=== PATIENT | female | born 1995 | race African-American/Black ===

== ENCOUNTER 2018-11-06 15:34 | Day surgery (SDC) | payer MEDICAID ==
[2018-11-06 16:17] VITALS: BMI 30.9
--- NOTE | 2018-11-06 16:52 | PDOC.LDHP ---
Labor and Delivery H&P Chief complaint: other (fall) HPI: 23 y/o at 37w1d presents after falling on the stairs and hitting her abdomen. Denies VB, LOF, ctx, or decreased FM. Has had care in [place] until now and is trying to establish care with [facility]. ROS neg for HEENT, cv, pulm, gi, gu, neuro, psych, skin, musculoskeletal or constitutional symptoms other than mentioned above. Dating criteria: last menstrual period, first trimester ultrasound OB History Details: 2 prior term SVDs Current complications: none Past Medical History: None Current medications: pre-zander vitamins, other (antacid) Previous surgical history: none Allergies/Adverse Reactions: Allergies Allergy/AdvReac Type Severity Reaction Status Date / Time No Known Allergies Allergy Verified 11/06/18 16:19 Social history: none - Physical Exam Vital signs reviewed and normal: yes General: NAD, resting Lungs: nonlabored breathing Abdomen: gravid Extremeties: no edema FHT: category 1 (140s, mod variability, + accels, no decels) [place] contractions every: occasional - Vaginal Exam cm dilated: 3 (unchanged) Effacement: 50% Station: -3 - OB Labs Blood type: O RH: positive Antibody Screen: negative HIV: negative RPR: negative HEPSAg: negative GBS: positive - Assessment 23 y/o at 37w1d with no e/o abruption or labor. KB negative. status reassuring with reactive NST, monitoring over 4 hours. Bedside HEATHER performed = 6.2cm. - Plan -: D/c home with precautions. Advised to establish care PATRICIO. [facility] talked to patient and getting her set up with their clinic vs [facility]NC.
[2018-11-06 17:53] LABS: #Basophils 0.1 thou/uL (0.0-0.2); #Eosinphils 0.1 thou/uL (0.0-0.7); #Lymphocytes 1.9 thou/uL (1.20-3.40); #Neutrophils 4.8 thou/uL (1.40-6.50); %Basophils 1.1 % (0.0-1.0); %Eosinophils 1.1 % (0.0-10.0); %Lymphocytes 24.1 % (21.0-51.0); %Monocytes 12.1 % (0.0-10.0); %Neutrophils 61.6 % (42.0-75.0); Hemoglobin 10.4 g/dL (12.0-16.0); Mean Corpuscular HGB CONC 32.6 g/dL (32.0-36.0); Mean Corpuscular Hemoglobin 26.1 pg (27.0-31.0); Mean Platelet Volume 9.4 fL (7.4-10.4); Platelet Count 224 thou/uL (130-400); RBC Distribution Width 13.3 % (11.5-14.5); White Blood Cell (WBC) Count 7.8 thou/uL (4.8-10.8)
[2018-11-06 18:34] LABS: Syphilis Antibody Nonreactive (Nonreactive); Syphilis Antibody Index 0.05 S/CO (<1.00 Non-Reactive)
[2018-11-06 18:35] LABS: HIV (1/2) Antibody/Antigen Non-Reactive (NonReactive); HIV 1/2 INDEX 0.09 S/CO (<1.00); Hep B Surf Ag Non-Reactive S/CO (NonReactive)
== END 2018-11-06 20:20 | disposition home or self-care (01) ==
LOC: L&D/OP 15:34
PROVIDERS: ATTEND Obstetrics & Gynecology
DX: Z04.3 Encounter for examination and observation following other accident (principal); Z3A.37 37 weeks gestation of pregnancy
CPT/HCPCS: 36415; 76815; 85025; 85460; 86762; 86780; 86850; 86900; 86901; 87340; 87389; 99283

== ENCOUNTER 2018-11-19 17:30 | Inpatient (IN) | payer MEDICAID ==
[2018-11-19] MEDS ORDERED: hydrALAZINE 20 MG/ML VIAL SLOW IVP PRN (17:52)
[2018-11-19] MEDS ORDERED: Ondansetron PF 4 MG/2 ML Vial IVP PRN (17:52)
[2018-11-19] MEDS ORDERED: Acetaminophen 500 MG TAB PO PRN (17:52)
[2018-11-19] MEDS ORDERED: Promethazine HCl 25 MG/ML VIAL IM PRN (17:52)
[2018-11-19] MEDS ORDERED: NS / Oxytocin 40 units/1000ml 1,000 ML IV PRN (17:53)
[2018-11-19] MEDS ORDERED: Lidocaine 1% (PF) 30 ML VIAL SC PRN ×2 (17:53→18:10)
[2018-11-19] MEDS ORDERED: Penicillin G Potassium 5 MILL.UNITS in Sodium Chloride 0.9% 100 ML IVPB SCH (18:00)
[2018-11-19] MEDS ORDERED: Lactated Ringer's 1,000 ML IV SCH (18:00)
--- NOTE | 2018-11-19 18:19 | PDOC.LDHP ---
Labor and Delivery H&P Chief complaint: contractions HPI: 23 yo @ 39.0 wks by LMP c/w 1T US presents by EMS with contractions every 2 minutes. Contractions began earlier this afternoon and were 10 minutes apart. GBS+, O+, HIV neg, RPR non-reactive, HepsAG negative, antibody negative. Denies vaginal bleeding, loss of fluid, edema. Denies hx of HTN or DM. UTI during , treated. APRYL 11/26/2018 This patient was receiving care in [place] before re-establishing care at 38 weeks at [facility]. Current gestational age (weeks): 39 Due date: 11/26/18 Dating criteria: last menstrual period, first trimester ultrasound Grav: 4 Para: 2 OB History Details: 1: Delivered 6lb 12 oz male born on 01/31/2012 at 37 wks via No or delivery complications 2: Delivered 7lb 3 oz female at 38 wks via No or delivery complications Current complications: other (anemia of ) Abnormal US findings: No Past Medical History: unremarkable Current medications: pre-zander vitamins, iron Previous surgical history: none Allergies/Adverse Reactions: Allergies Allergy/AdvReac Type Severity Reaction Status Date / Time No Known Allergies Allergy Verified 11/19/18 18:12 Social history: none - Physical Exam Vital signs reviewed and normal: yes General: breathing through contractions Heart: RRR Lungs: CTAB Abdomen: gravid Extremeties: no edema FHT: category 1, variability present - Vaginal Exam cm dilated: 6 Effacement: 90% Station: 0 - OB Labs Blood type: O RH: positive Antibody Screen: negative HIV: negative RPR: negative HEPSAg: negative 1 hour GCT: negative GBS: positive - Assessment L&D Assessment: term patient in labor - Plan Plan: admit to L&D, GBS antibiotic prophylaxis, anesthesia consult for pain management (epidural requested) -: Term /0 @ 6:15pm 11/19/18, recheck at 8pm category 1 strip Blood type O+, antibody neg HIV, RPR, HebsAG neg gtt normal epidural 1L LR hanging TAMP PCP Julia Spence will be called for delivery GBS+ penicillin started at 6:40pm 11/19/18 Anemia of 10/17/18 H/H 10.5/32.3 11/19/18 H/H 11.2/35.1 Patient has been taking iron Addendum - Attending - Attending Attestation Date/Time: 11/20/18 1042 I personally evaluated the patient and discussed the management with Dr. Robertson. I agree with the History, Examination, Assessment and Plan documented above with any addition or exceptions noted below. Late entry. , term, in active labor, GBS+. Late xfer of care. Admit, antibiotics.
[2018-11-19] MEDS ORDERED: Fentanyl 4 mcg/Bup 0.1% Cadd 100 ML ONE (18:22)
[2018-11-19 18:25] VITALS: BMI 31.0
[2018-11-19 18:26] LABS: Hemoglobin 11.2 g/dL (12.0-16.0); Mean Corpuscular HGB CONC 31.8 g/dL (32.0-36.0); Mean Corpuscular Volume 78.7 fL (78.0-98.0); Mean Platelet Volume 9.9 fL (7.4-10.4); Platelet Count 246 thou/uL (130-400); RBC Distribution Width 14.3 % (11.5-14.5); Red Blood Cell (RBC) Count 4.46 mill/uL (4.20-5.40); White Blood Cell (WBC) Count 8.5 thou/uL (4.8-10.8)
[2018-11-19] MEDS ORDERED: Lactated Ringer's 500 ML IV SCH (19:00)
[2018-11-19 19:01] LABS: Syphilis Antibody Nonreactive (Nonreactive); Syphilis Antibody Index 0.06 S/CO (<1.00 Non-Reactive)
[2018-11-19 19:02] LABS: Hep B Surf Ag Non-Reactive S/CO (NonReactive)
--- NOTE | 2018-11-19 19:36 | PDOC.EVN ---
Event Note - Event Note Event Note: last check at 1800, /0 FHT: accels present, baseline 150, good variability, variable decels present, cxns q3-4 plan - re-check at 2000 - 500ml bolus, turn to left side - Cat II strip will monitor Addendum - Attending - Attending Attestation Date/Time: 11/19/182123 I personally evaluated the patient and discussed the management with Dr. Queen. I agree with the History, Examination, Assessment and Plan documented above with any addition or exceptions noted below. At my exam cat 1, +accels, mod [place], no decels. Continue current plan and AROM at next check.
--- NOTE | 2018-11-19 20:55 | PDOC.EVN ---
Event Note - Event Note Event Note: last check at 2049, FHT: accels present with early decels, baseline 120, good variability followed by period of minimal variability, likely sleep cycle, cxns q2-3 octaviano - Julia Spence notified - re-check at 2149 - Cat II strip, will monitor
--- NOTE | 2018-11-19 21:43 | PDOC.EVN ---
Event Note - Event Note Event Note: complete +1 minimal varibilaity, no decels, no accels has had good period of accels and variability Cat II strip Will prepare for delivery
[2018-11-19] MEDS ORDERED: Penicillin G 2.5 MILL.units 2.5 MILL.UNITS in Premix Bag 1 BAG IVPB SCH (22:00)
--- NOTE | 2018-11-19 22:13 | PDOC.OPDEL ---
Addendum entered and electronically signed by Kathy Robertson MD 11/19/18 22:43: Vigorous female delivered over an intact perineum in the OP position. Original Note: OB Operative/Delivery Note Delivery Dr/Surgeon: Jordy Robertson Willliamson Pre-Delivery Diagnosis: active labor Procedure/Post Delivery Dx: spontaneous vaginal delivery Weeks gestation: 39 Anesthesia: epidural - Findings A Sex: female - 1 min: 9 - 5 min: 9 - Additional Findings/Plan Placenta delivered: spontaneous Repaired Obstetrical Laceration: none Compilations/Other Findings: Delivery Note: This is 23yo F G4 now P3 0 1 3 @ 39wks who delivered a viable F infant at 2159 on 11/19/18. Following an antepartum course complicated by GBS+ with inadequate prophylaxis, a vigorous female was delivered over an intact perineum in the OA position. Anterior Shoulder and then remainder of the body delivered. No nuchal cord. The head was held down and mouth and nares were bulb suctioned. Cord clamped after delayed cord clamping and cut and cord blood collected. Placenta delivered intact in the [place] presentation with a 3 vessel cord noted. Fundal massage was performed and the fundus was firm. The cervix and vagina were inspected and found to be free of lacerations. Infant went to nursery in good condition for routine care. Apgars were 9/9 at 1 & 5 minutes, respectively. QBL 60ml. Patient tolerated delivery well and went to after routine recovery/care. Post delivery plan: routine recovery Addendum - Attending - Attending Attestation Date/Time: 11/19/18 2331 I was present for the entire delivery. AG 01/14, EBL 150 cc, no tears, GBS ppx of only ~ 3 hours.
[2018-11-19] MEDS: NS / Oxytocin 40 units/1000ml 1,000 ML IV PRN ×2 (22:26→23:57)
[2018-11-20] MEDS ORDERED: Benzocaine-Menthol 82.5 ML CAN TOP PRN (00:37)
[2018-11-20] MEDS ORDERED: NS / Oxytocin 40 units/1000ml 1,000 ML IV SCH (00:37)
[2018-11-20] MEDS ORDERED: hydrALAZINE 20 MG/ML VIAL SLOW IVP PRN (00:37)
[2018-11-20] MEDS ORDERED: Milk Of Magnesia 30 ML UDCUP PO PRN (00:37)
[2018-11-20] MEDS ORDERED: Bisacodyl 10 MG SUPP PR PRN (00:37)
[2018-11-20] MEDS ORDERED: Lanolin Ointment 7 GM TUBE TOP PRN (00:37)
[2018-11-20] MEDS ORDERED: Ondansetron PF 4 MG/2 ML Vial IVP PRN (00:37)
[2018-11-20] MEDS ORDERED: diphenhydrAMINE 25 MG CAP PO PRN (00:37)
[2018-11-20] MEDS ORDERED: Preparation H Ointment 28 GM TUBE PR PRN (00:37)
[2018-11-20] MEDS: Ibuprofen 800 MG TAB PO SCH ×3 (02:53→21:37)
[2018-11-20] MEDS ORDERED: Acetaminophen 325 MG TAB PO SCH (05:15)
[2018-11-20] MEDS ORDERED: HYDROcodone/Acetaminophen 5/325 mg Tablet PO SCH (05:30)
--- NOTE | 2018-11-20 07:05 | PDOC.PP ---
Post Progress Note Post Day #: 1 Subjective: Patient resting comfortably in bed. States she is tolerating PO. She has ambulated to the bathroom and back. She has not passed flatus yet. She is voiding normally. She endorses minimal lochia - about the amount of a period. She states she has some cramping in her abdomen every once in a while and did require a one time dose of [place] last night. PO intake tolerated: yes Flatus: yes Ambulation: yes Vital Signs (12 hours) Temp Pulse Resp BP 11/20/18 05:42 97.5 F L 73 18 109/69 11/20/18 02:30 97.9 F 68 18 115/69 11/20/18 01:39 88 18 114/86 11/20/18 00:27 97.8 F 74 18 109/64 Weight Weight 82.1 kg - Physical Examination General: NAD Cardiovascular: no m/r/g, RRR Respiratory: clear to auscultation bilaterally, non-labored breathing Abdominal: + bowel sounds, lochia (minimal), no distention Neurological: no gross focal deficits Psychiatric: A&Ox3, normal affect Result Diagrams: 11/19/18 18:16 Additional Labs: Post Labs Blood Type O POSITIVE 11/19/18 18:16 Hep Bs Antigen Non-Reactive S/CO (NonReactive) 11/19/18 18:16 (1) Term Code(s): Z34.90 - ENCNTR FOR SUPRVSN OF NORMAL , UNSP, UNSP TRIMESTER Status: Acute - Assessment/Plan 23yo [id number] who delivered a viable F @ 2159 on 11/19 via , no lacs. Patient is PP day 1. - Routine PP care - Patient tolerating PO, encourage ambulation; voiding normally; no flatus yet - Continue PNV, iron - Pain control with motrin and tylenol - successfully External Hemorrhoids - preparation H given Dispo: adama Jin
[2018-11-20] MEDS ORDERED: Acetaminophen 325 MG TAB PO PRN (07:20)
[2018-11-20] MEDS: Ferrous Sulfate 325 MG TAB PO SCH ×2 (08:07→17:48)
[2018-11-20] MEDS ORDERED: Adacel (T-DAP) 0.5 ML SYRINGE IM ONE (09:00)
[2018-11-20] MEDS: Prenatal Vitamin 1 TAB PO SCH (10:14)
[2018-11-20] MEDS: Docusate Calcium (SURFAK) 240 MG CAP PO SCH ×2 (10:14→20:28)
[2018-11-21] MEDS: Ibuprofen 800 MG TAB PO SCH ×3 (06:12→21:26)
--- NOTE | 2018-11-21 07:28 | PDOC.PP ---
Post Progress Note Post Day #: 2 Subjective: Patient resting comfortably in bed. Patient states her pain/cramping has been minimal and improved from yesterday. States lochia is minimal and less than a period. She is tolerating PO, ambulating and now passing flatus. Patient states things are going well. She is formula feeding. States breasts are engorged but manageable. Denies any chest pain, SOB, palpitations, NVD, headache, or vision changes. PO intake tolerated: yes Flatus: yes Ambulation: yes Vital Signs (12 hours) Temp Pulse Resp BP BP Pulse Ox 11/21/18 01:54 97.5 F L 69 18 115/68 11/20/18 20:20 97.8 F 75 18 107/59 L 97 Weight Weight 82.1 kg - Physical Examination General: NAD Cardiovascular: no m/r/g, RRR Respiratory: clear to auscultation bilaterally, non-labored breathing Abdominal: + bowel sounds, lochia (minimal), no distention Psychiatric: A&Ox3, normal affect Result Diagrams: 11/19/18 18:16 Additional Labs: Post Labs Blood Type O POSITIVE 11/19/18 18:16 Hep Bs Antigen Non-Reactive S/CO (NonReactive) 11/19/18 18:16 (1) Term Code(s): Z34.90 - ENCNTR FOR SUPRVSN OF NORMAL , UNSP, UNSP TRIMESTER Status: Acute - Assessment/Plan Patient is PP day 2. - Routine PP care - Patient tolerating PO, encourage ambulation; voiding normally and passing flatus - Pain control with motrin and tylenol External Hemorrhoids - preparation H given Dispo: dc later today or tomorrow
[2018-11-21] MEDS: Ferrous Sulfate 325 MG TAB PO SCH ×2 (08:58→16:22)
[2018-11-21] MEDS: Prenatal Vitamin 1 TAB PO SCH (08:59)
[2018-11-21] MEDS: Docusate Calcium (SURFAK) 240 MG CAP PO SCH ×2 (08:59→21:27)
[2018-11-21 23:09] VITALS: BP 114/73; TEMP 98.5
== END 2018-11-21 22:17 | disposition home or self-care (01) | DRG 807 ==
LOC: L&D/OP 17:30 → L&D 18:29 → 3SW 11-20 00:39
PROVIDERS: ADMIT Family Medicine; ATTEND Family Medicine
PROC: 10907ZC Drainage of Amniotic Fluid, Therapeutic from Products of Conception, Via Natural or Artificial Opening (ICD-10-PCS; principal; 2018-11-19)
PROC: 10E0XZZ Delivery of Products of Conception, External Approach (ICD-10-PCS; 2018-11-19)
DX: O99.824 Streptococcus B carrier state complicating childbirth (principal); Z37.0 Single live birth; O99.02 Anemia complicating childbirth; D64.9 Anemia, unspecified; Z3A.39 39 weeks gestation of pregnancy
CPT/HCPCS: 36415; 51702; 85027; 86780; 86850; 86900; 86901; 87340; 90715; 99285; J2540; J3490